=== PATIENT | female | born 1965 | race African-American/Black ===

== ENCOUNTER 2025-02-25 07:11 | Outpatient (CLI) | payer BC ==
[~2025-02-25] VITALS: Ht 172.7 cm; Wt 117.9 kg
[~2025-02-25 07:11] MED LIST: ASPI81CH59 PO; ATOR40TA52 PO; LISI2.5T47 PO; METO-6 PO
[2025-02-25] MEDS: REGADENOSON 0.4 MG/5 ML SYRG IV ONE ×2 (08:55)
--- NOTE | 2025-02-25 16:24 | DVHSR ---
APPROVED REPORT Exam: Nuclear Stress Test Indication: HTN. HLD, OBESITY BMI: 0 Medical History Medical History: HTN, HLD, CVA Stress Test Details Stress Test: Pharmacologic stress testing performed using 0.4 mg of regadenoson per 5 mL given IV ov er 10 seconds. HR Resting HR: 63 bpmMax Heart Rate (APMHR): 160.537867 bpm Max HR Achieved: 90 bpmTarget HR (85% APMHR): 136.637993 bpm % of APMHR: 56.25 Recovery HR: 75 bpm BP Resting BP: 113/73 mmHg Recovery BP: 114/70 mmHg ECG Resting ECG: Sinus Rhythm Clinical Reason for Termination: Completed protocol Stress ECG Conclusion lvef 56% no severe ischemia noted NM EXAM: Myocardial Perfusion REST/STRESS Imaging Protocol: Rest Tc-99m/Stress Tc-99m 1 day Resting Data Rest SPECT myocardial perfusion imaging was performed in supine position 60 minutes following the int ravenous injection of 11.0 mCi of Tc-99m Sestamibi. Time of rest injection: 07:35 Date: 02/25/2025 Time of rest imagin:35 Date: 02/25/2025 Administration Route: IV Administration Site: Left Hand Pharmacologic Stress Pharmacologic stress test was performed by injecting Regadenoson 0.4 mg IV push followed by the intra venous injection of 32.8 mCi of Tc-99m Sestamibi. Time of stress injection: 08:47 Date: 02/25/2025 Time of stress imagin:47 Date: 02/25/2025 Administration Route: IV Administration Site: Left Hand Gated Stress SPECT was performed 60 minutes after stress injection. The images were gated to evaluate regional wall motion and calculate left ventricular ejection fracti on. Stress only was performed in the Supine position. Nuclear Conclusion Clinical Findings: negative for ischemia lvef 56% no severe ischemia noted
== END 2025-02-25 17:00 | disposition home or self-care (01) ==
LOC: XYW 07:11
PROVIDERS: ATTEND Specialist
DX: I10 Essential (primary) hypertension (principal); E78.5 Hyperlipidemia, unspecified; E66.9 Obesity, unspecified; Z86.73 Personal history of transient ischemic attack (TIA), and cerebral infarction without residual deficits
CPT/HCPCS: 78452; 93017; A9500; J2785